=== PATIENT | male | born 1950 ===

== ENCOUNTER 2017-10-01 07:09 | Outpatient (CLI) | payer OTHER | END 2017-10-01 07:13 | disposition home or self-care (01) | LOC: SONOGRAMA 07:09 | DX: E04.1 Nontoxic single thyroid nodule (principal) ==

== ENCOUNTER 2018-03-23 07:14 | Outpatient (CLI) | payer OTHER | END 2018-03-23 07:16 | disposition home or self-care (01) | LOC: SONOGRAMA 07:14 | DX: E04.1 Nontoxic single thyroid nodule (principal) ==